=== PATIENT | female | born 1960 | race African-American/Black ===

== ENCOUNTER → 2016-09-09 | Outpatient (CLI) | payer OTHER ==
--- NOTE | 2016-09-09 16:50 | KCIC ---
Examination: MRI of the left shoulder without contrast HISTORY: History of pain in the left shoulder after being stuck by a door a few weeks back COMPARISON: None available TECHNIQUE: Multiplanar, multisequence MR imaging of the left shoulder performed without contrast. FINDINGS: The long head of the biceps tendon within the bicipital groove. The attachment of the long head of the biceps tendon to the superior labral anchor grossly intact. There is moderately to increasingly identified in the subscapularis tendon likely tendinosis. There is full-thickness tear of the supraspinatus tendon with extension of fluid into subacromial subdeltoid bursa. The retracted portion of the supraspinatus tendon lies just underneath the acromion. There is tendinosis of the supraspinatus tendon. There is mild increased signal identified in the anterior fibers of the infraspinatus tendon. The posterior fibers of the infraspinatus tendon appear intact. The teres minor tendon appears grossly intact. There is mild increased signal noted within the labrum likely degeneration. Moderate degenerative changes identified in the acromioclavicular joint. Inferior portion of the acromion abuts the supraspinatus tendon. The acromion is type II. Small shoulder joint effusion. There is fatty infiltration of the supraspinatus or infraspinatus muscles. There is mild obliteration of fat in the rotator interval. Small inferior osteophyte formation identified in the distal clavicle abutting the supraspinatus tendon. Moderate degenerative changes glenohumeral joint. IMPRESSION: 1. Full-thickness tear with retraction of the supraspinatus tendon. The retracted portion of the tendon is under the acromion. There is a mild increase identified in the anterior fibers of the infraspinatus tendon could be related to tendinosis or tear. The posterior fibers of the infraspinatus tendon are intact. 2. The inferior aspect of the acromion and an osteophyte in the inferior aspect of the clavicle abut the supraspinatus tendon. Correlate for impingement. 3. Mild obliteration of fat in the rotator interval likely adhesive capsulitis. 4. Moderate degenerative changes acromioclavicular joint, glenohumeral joint. 5. Tendinosis of the subscapularis, supraspinatus, infraspinatus tendons. Electronically signed by: Jose Alejandro Vidal MD (09/09/2016 4:47 PM)
== END | disposition home or self-care (01) ==
LOC: KCIC MRI 15:53
PROVIDERS: ATTEND Physician Assistant
DX: M25.712 Osteophyte, left shoulder (principal); M25.412 Effusion, left shoulder
CPT/HCPCS: 73221